=== PATIENT | male | born 1990 | race Caucasian/White ===

== ENCOUNTER 2017-01-28 02:37 | Emergency (ER) | payer BC ==
[~2017-01-28] VITALS: Ht 188 cm; Wt 90.9 kg
[~2017-01-28 02:37] MED LIST: CELEXA20 MG PO; CITALOPRAM20 MG PO
[2017-01-28] MEDS ORDERED: ADDERALL30 MG PO (03:01)
[2017-01-28 03:35] LABS: BASO % 0.5 % (0.0-2.0); EOS # 0.1 (0.0-0.7); EOS % 1.6 % (0-4.0); GRAN # 4.4 (1.4-6.5); GRAN % 60.2 % (42.2-75.2); HEMATOCRIT 43.2 % (42.0-52.0); HEMOGLOBIN 15.4 g/dl (13.5-18.0); LYMPH % 27.6 % (20.0-51.0); MEAN CELL VOLUME 88 fl (80.0-100.0); MEAN CORPUSCULAR HEMOGLOBIN 31 pg (27.0-31.0); MEAN CORPUSCULAR HGB CONC 36 g/dl (33.0-37.0); MONO # 0.7 (0.1-0.6); MONO % 9.8 % (1.7-9.3); PLATELET COUNT 239 K/mm3 (130-400); WHITE BLOOD COUNT 7.3 K/mm3 (4.8-10.8)
[2017-01-28 03:45] LABS: ADJUSTED CALCIUM 8.7 mg/dL (8.4-10.2); ALBUMIN 4.7 gm/dL (3.5-5.0); BILIRUBIN,TOTAL 0.7 mg/dL (0.0-1.0); CALCIUM 9.3 mg/dL (8.4-10.2); CREATININE, serum 1.15 mg/dL (0.66-1.25); POTASSIUM 3.7 mmol/L (3.4-5.0); TOTAL PROTEIN 7.9 gm/dL (6.4-8.2)
[2017-01-28] MEDS ORDERED: MIRALAX238G PO (04:11)
[2017-01-28] MEDS ORDERED: DULCOLAX STOOL100 MG PO (04:11)
[2017-01-28 04:39] VITALS: BP 143/75; PULSE 64; TEMP 97
== END 2017-01-28 04:17 | disposition home or self-care (01) ==
LOC: COL.ER 02:37
PROVIDERS: Emergency Medicine
DX: K59.00 Constipation, unspecified (principal); R55 Syncope and collapse; Z87.19 Personal history of other diseases of the digestive system; Z98.890 Other specified postprocedural states